=== PATIENT | male | born 1990 | race African-American/Black ===

== ENCOUNTER 2016-07-08 21:13 | Emergency (ER) | payer BC, OTHER ==
[~2016-07-08] VITALS: Ht 170.2 cm; Wt 84.8 kg
[2016-07-08 21:18] VITALS: TEMP 36.8; Ht 170.2 cm; Wt 84.8 kg
[2016-07-08] MEDS ORDERED: SODIUM CHLORIDE 0.9% 500ML 500 ML IV STA (23:39)
[2016-07-08] MEDS ORDERED: MULT-506 PO (23:47)
[2016-07-09 00:02] LABS: BASO % 0.2 %; BASO ABS # 0.01 K/uL (0-0.2); COMPLETE YES; EOS % 1.4 %; HEMATOCRIT 44.8 % (42-52); LYMPH % 48.6 %; LYMPH ABS # 2.72 K/uL (1.2-3.4); MEAN CELL VOLUME 86.2 fL (80-100); MEAN CORPUSCULAR HEMOGLOBIN 31.3 pg (25-34); MEAN CORPUSCULAR HGB CONC 36.4 g/dl (32-36); MEAN PLATELET VOLUME 9.6 fL (7.4-10.4); MONO % 7.1 %; NEUT % 42.7 %; PLATELET COUNT 230 K/uL (130-400)
[2016-07-09 00:10] LABS: ISTAT CREATININE 1.2 mg/dl (0.6-1.3); ISTAT IONIZED CALCIUM 1.24 mmol/l (1.12-1.32)
[2016-07-09] MEDS ORDERED: OPTIRAY 320 IV PRN (00:15)
[2016-07-09 00:27] LABS: CALCIUM 8.7 mg/dl (8.5-10.1); CREATININE 1.3 mg/dl (0.60-1.40); POTASSIUM 4.1 mmol/L (3.5-5.1)
[2016-07-09 00:30] LABS: ALB/GLOB RATIO 1.2 (0.9-2)
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
[2016-07-09 02:15] VITALS: BP 127/66; PULSE 78; O2SAT 97
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
== END 2016-07-09 02:15 | disposition home or self-care (01) ==
LOC: C.EDB 21:15 → C.EDC 07-09 02:15
DX: S39.012A Strain of muscle, fascia and tendon of lower back, initial encounter (principal); S16.1XXA Strain of muscle, fascia and tendon at neck level, initial encounter; S39.81XA Other specified injuries of abdomen, initial encounter; V89.2XXA Person injured in unspecified motor-vehicle accident, traffic, initial encounter; Y93.89 Activity, other specified; Y99.8 Other external cause status; Y92.410 Unspecified street and highway as the place of occurrence of the external cause; Z87.01 Personal history of pneumonia (recurrent); Z83.3 Family history of diabetes mellitus; Z82.49 Family history of ischemic heart disease and other diseases of the circulatory system; Z82.0 Family history of epilepsy and other diseases of the nervous system